=== PATIENT | male | born 1970 | race Caucasian/White ===

== ENCOUNTER 2019-10-08 17:14 | Emergency (ER) | payer BC, OTHER ==
--- OUTSIDE RECORDS SUMMARY | 2019-10-08 17:26 | XMS REPORT | Continuity of Care Document ---
:1970 External Reference #:[id number] Author Name Cassie Ramos MD Address [address] [place] [id number] Problems Active Problems Provider Date Mixed hyperlipidemia Ruchi Minor MD Onset: 06/15/2017 Mild intermittent asthma Ruchi Minor MD Onset: 07/10/2019 Impaired fasting glycaemia Ruchi Minor MD Onset: 08/01/2019 Social History Type Date Description Comments Sex Unknown ETOH Use 07/10/2019 Occasionally consumes alcohol score = 3 Tobacco Use Start: Unknown Patient has never smoked Smoking Status Reviewed: 07/10/19 Patient has never smoked Allergies, Adverse Reactions, Alerts Active Allergies Reaction Severity Comments Date Latex facial swelling 06/11/2016 Medications Active Medications SIG Qnty Indications Ordering Provider Date Proair HFA 2 puffs every 4 8.500gm J45.20 Ruchi Minor, 06/15/2017 108(90Base) hours as needed mcg/Act Aerosol Loratadine 1 by mouth every 30tabs Ruchi Minor, 06/11/2016 10mg Tablets day Medications Administered in Office Medication SIG Qnty Indications Ordering Provider Date PPD Injection Schedule, Nurses 11/23/2018 Immunizations CPT Code Status Date Vaccine Lot # [id number] Given 07/10/2019 Tdap (Adacel) Ages 7 And Above Only [id number] Given 05/17/2009 Hepatitis B Vac Adolescent 2 Dose Schedule 16369 Given 05/17/2009 Tdap (Adacel) Ages 7 And Above Only 43293 Given 04/09/2009 Hepatitis B Vac Adolescent 2 Dose Schedule 14794 Given 09/30/1981 Tetanus And Diptheria Toxoid 7 Years And Older Preserv Free 51157 Given 09/30/1981 Oral Poliovirus Immunization [id number] Refused 07/06/2018 Flu Vaccine NOS Vital Signs Date Vital Result Comment 08/22/2019 4:09pm Body Temperature 98.7 F Weight 208.00 lb Heart Rate 72 /min BP Systolic 128 mmHg BP Diastolic 70 mmHg Respiratory Rate 18 /min O2 % BldC Oximetry 98 % ra 07/10/2019 10:30am Weight 208.00 lb With work boots Heart Rate 80 /min BP Systolic 124 mmHg BP Diastolic 78 mmHg Respiratory Rate 18 /min Height 63.50 inches 5'3.50" O2 % BldC Oximetry 98 % Ra BMI (Body Mass Index) 36.3 kg/m2 Results Test Acquired Date Facility Test Result H/L Range Note Lipid Treatment 08/01/2019 [facility] Cholesterol 231 mg/dL High 50-199 1 Triglycerides 279 mg/dL High 30-200 HDL 35 mg/dL 29-71 2 Chol/ HDL Ratio 6.5 ratio 4.0-6.7 VLDL 56 mg/dL High 2-29 LDL (Calc) 140 mg/dL High 20-99 3 Alt 32 U/L 3-42 Ast 28 U/L 8-42 CBC with Auto Diff-fcmg 08/01/2019 [facility] WBC 6.8 K/uL 4.1-11.0 4 RBC 5.12 M/uL 4.60-6.10 5 Hemoglobin 16.2 gm/dL 13.5-18.0 6 Hematocrit 46.0 % 41.0-53.0 7 MCV 89.9 fL 80.0-95.0 8 MCH 31.6 pg 27.0-32.0 9 MCHC 35.1 g/dL 32.0-36.0 10 RDW 13.5 % 10.5-14.5 11 PLT Count 162 K/ul 150-400 12 MPV 9.3 FL 7.1-10.7 Neutrophil 55.4 % 35.0-75.0 13 Lymphocyte 34.3 % 16.0-52.0 14 Monocyte 7.5 % 0.0-8.0 15 Eosinophil 2.4 % 0.0-5.0 Basophil 0.4 % 0.0-4.0 Abs Neutrophils 3.8 K/uL 1.8-7.7 16 Abs Lymphocytes 2.3 K/uL 1.2-4.8 17 Abs Monocytes 0.5 K/uL 0.0-0.8 18 Abs Eosinophils 0.2 K/uL 0.0-0.5 19 Abs Basophils 0.0 K/uL 0.0-0.2 20 Laboratory test finding 08/01/2019 [facility] TSH 1.84 uIU/mL 0.35-4.94 Basic (BMP) 08/01/2019 [facility] Sodium 137 mmol/L 135-146 21 Potassium 4.1 mmol/L 3.5-5.2 Chloride# 101 mmol/L 97-110 22 Carbon Dioxide 28 mmol/L 24-34 Glucose 109 mg/dL High 70-105 BUN 10 mg/dL 6-26 Creatinine 0.9 mg/dL 0.5-1.4 Calcium 9.1 mg/dL 8.5-10.5 23 Female Egfr 78 >60 24 Male Egfr 101 >60 25 Anion Gap 8 mmol/L 5-15 26 Laboratory test finding 08/01/2019 [facility] PSA 0.530 ng/mL 0.000-4.000 27 1 soon 2 Per NCEP ATP III Guidelines: Results lower than 40 mg/dL are suggestive of increased risk for coronary artery disease. Results > or = to 60 mg/dL are considered a negative risk factor. 3 Per NCEP ATP III Guidelines: Normal Population <130 Patients with medical conditions: CHD/DM Optimal: <100 Borderline high: 130-159 High: 160-189 Very high: >189 4 Updated Reference Range 06/2019 5 Updated Reference Range 06/2019 6 Updated Reference Range 06/2019 7 Updated Reference Range 06/2019 8 Updated Reference Range 06/2019 9 Updated Reference Range 06/2019 10 Updated Reference range 06/2019 11 Updated Reference range 06/2019 12 Updated Reference Range 06/2019 13 Updated Reference Range 06/2019 14 Updated Reference Range 06/2019 15 Updated Reference Range 06/2019 16 Updated Reference Range 06/2019 17 Updated Reference Range 06/2019 18 Updated Reference Range 06/2019 19 Updated Reference Range 06/2019 20 Updated Reference Range 06/2019 21 Updated reference range on new analyzer 22 Updated reference range on new analyzer 23 Updated reference range 12-14-2018 24 Concerning GFR Guidelines for Americans: Normal function or mild renal disease, if clinically at risk: >/= 60 mL/min Moderately decreased: 30-59 Severely decreased: 15-29 Renal failure: <15 There is reduced accuracy above 60ml/min/1.73 m squared, but the numeric value may be clinically useful in the near 60 range 25 Concerning GFR Guidelines: Normal function or mild renal disease, if clinically at risk: >/= 60 mL/min Moderately decreased: 30-59 Severely decreased: 15-29 Renal failure: <15 There is reduced accuracy above 60ml/min/1.73 m squared, but the numeric value may be clinically useful in the near 60 range Glomerular Filtration Rate (GFR) is estimated based on the CKD-EPI equation, which assumes a steady state for creatinine as recommended by the National Kidney Disease Education Program in conjunction with the National Institutes of Health and the National Kidney Foundation. Clinical conditions in which it may be necessary to measure GFR by using clearance methods include extremes of age and body size, severe malnutrition or obesity, diseases of skeletal muscle, paraplegia or quadriplegia, vegetarian diet, rapidly changing kidney function, and calculation of the dose of potentially toxic drugs that are excreted by the kidneys. 26 Updated Reference Range 27 Beginning 10/11/06 PSA values assayed at [facility] laboratories uses chemiluminescence methodology manufactured by [employer] for use on the DXI analyzer. Values obtained with different assay methods or kits can not be used interchangeably. Serum PSA measurement is not an absolute test for malignancy. The PSA value should be used in conjunction with information available from clinical evaluation and other diagnostic procedures. Procedures Description No Information Available Medical Devices Description No Information Available Encounters Type Date Location Provider Dx Diagnosis Office Visit 07/10/2019 [facility] Ruchi Minor MD Z00.00 Encntr for general 10:30a adult medical exam w/o abnormal findings E66.9 Obesity, unspecified E78.2 Mixed hyperlipidemia Z12.11 Encounter for screening for malignant neoplasm of colon J45.20 Mild intermittent asthma, uncomplicated Z12.5 Encounter for screening for malignant neoplasm of prostate Z13.31 Encounter for screening for depression Z13.89 Encounter for screening for other disorder Z23 Encounter for immunization Z68.36 Body mass index (BMI) 36.0-36.9, adult Assessments Date Code Description Provider 08/22/2019 L82.1 Other seborrheic keratosis Cassie Ramos MD 08/01/2019 E78.2 Mixed hyperlipidemia Ruchi Minor MD 08/01/2019 E78.2 Mixed hyperlipidemia Schedule, Laboratory 08/01/2019 Z12.5 Encounter for screening for malignant neoplasm Ruchi Minor MD of prostate 08/01/2019 Z12.5 Encounter for screening for malignant neoplasm Schedule, Laboratory of prostate 08/01/2019 E78.2 Mixed hyperlipidemia [facility] 08/01/2019 Z12.5 Encounter for screening for malignant neoplasm [facility] of prostate 07/10/2019 Z00.00 Encounter for general adult medical Ruchi Minor MD examination without abnormal findings 07/10/2019 E66.9 Obesity, unspecified Ruchi Minor MD 07/10/2019 E78.2 Mixed hyperlipidemia Ruchi Minor MD 07/10/2019 Z12.11 Encounter for screening for malignant neoplasm Ruchi Minor MD of colon 07/10/2019 J45.20 Mild intermittent asthma, uncomplicated Ruchi Minor MD 07/10/2019 Z12.5 Encounter for screening for malignant neoplasm Ruchi Minor MD of prostate 07/10/2019 Z13.31 Encounter for screening for depression Ruchi Minor MD 07/10/2019 Z13.89 Encounter for screening for other disorder Ruchi Minor MD 07/10/2019 Z23 Encounter for immunization Ruchi Minor MD 07/10/2019 Z68.36 Body mass index (BMI) 36.0-36.9, adult Ruchi Minor MD Plan of Treatment Future Appointment(s):07/15/2020 10:30 am - Ruchi Minor MD at [facility]08/22/2019 - Cassie Ramos MDL82.1 Other seborrheic keratosisComments:seborrheic keratosis. Explained likely inherited type skin lesion, benign, grows slowly over time and likely to develop more. If grows rapidly or significant pigment change, could be something else, ie skin cancer, and should let me know. Pt should continue self monitoring of skin lesions and advise me of any changing lesions of concern. ok to use topical hydrocortisone for itching If not controlling the itch then may seek care for shave biopsyFollow up:follow up as scheduled Functional Status Functional Condition Comment Date Status Negative for GLASSES Inactive Mental Status Description No Information Available Referrals Refer to Reason for Referral Status Appt Date Deb Boyer screening colonoscopy earlier in day is better Scheduled after 07/29/[address] TO REVIEW IN ORDER TO GET AN AP[place]EDUL[place] [place] [place] [address] [phone]
[2019-10-08 17:58] VITALS: BP 145/66
--- NOTE | 2019-10-08 18:21 | UC ---
Laceration HPI - HPI Summary HPI Summary: Cut right thumb over IP joint with metal can lid. Steri strips applied. - History Of Current Complaint Chief Complaint: UCLaceration Stated Complaint: RIGHT THUMB LACERATION Time Seen by Provider: 10/08/19 18:03 Hx Obtained From: Patient Laceration Location: Finger - right thumb Mechanism Of Injury: Sharp Trauma Onset/Duration: Sudden Onset, Lasting Hours - 1 Severity: Mild Pain Intensity: 0 Aggravating Factors: Nothing Hands: 1 - 0.9cm laceration with steri strips in place. - Allergies/Home Medications Allergies/Adverse Reactions: Allergies Allergy/AdvReac Type Severity Reaction Status Date / Time latex Allergy Severe facial, Verified 10/08/19 17:58 lips swelling Home Medications: Home Medications Albuterol HFA INHALER* [Ventolin HFA Inhaler*] 2 puff INH Q4H PRN 10/08/19 [ History Confirmed 10/08/19] LoraTADine TAB(NF) [Claritin 10 MG TAB(NF)] 10 mg PO DAILY 10/08/19 [History Confirmed 10/08/19] Montelukast Sodium TAB* [Singulair 10 MG TAB*] 10 mg PO BEDTIME #30 tab [Rx] PMH/Surg Hx/FS Hx/Imm Hx Respiratory History: Asthma - Surgical History Surgical History: None - Family History Known Family History: Positive: Hypertension, Diabetes Family History: no father history of cardio vascular disease , clotting or bleeding disorder - Social History Occupation: Employed Full-time Lives: With Family Alcohol Use: Occasionally Substance Use Type: None Smoking Status (MU): Never Smoked Tobacco - Immunization History Most Recent Tetanus Shot: 06/2019 Review of Systems All Other Systems Reviewed And Are Negative: Yes Skin: Positive: Other - laceration ENT: Positive: Nasal Discharge Respiratory: Positive: Cough - "winter cough" Physical Exam Triage Information Reviewed: Yes Appearance: Well-Appearing, No Pain Distress, Well-Nourished Vital Signs: Initial Vital Signs Temp 98 F 10/08/19 17:55 Pulse 90 10/08/19 17:55 Resp 16 10/08/19 17:55 BP 145/66 10/08/19 17:55 Pulse Ox 99 10/08/19 17:55 Vital Signs Reviewed: Yes Eyes: Positive: Conjunctiva Clear Neck exam: Normal Respiratory: Positive: Lungs clear Cardiovascular Exam: Normal Musculoskeletal Exam: Normal Neurological Exam: Normal Psychological Exam: Normal Skin: Positive: Other - laceration Laceration Repair - Laceration Repair 1 Description: Linear : No Repair Necessary - wound well approximated with steri strips in place. Laceration Size After Repair: Length (cm) - 0.9cm Laceration Course/Dx - Differential Dx - Laceration/Wound Differental Diagnoses: Avulsion, Dehiscence, Laceration - Diagnosis Provider Diagnosis: Laceration of right thumb without complication, Allergic rhinitis Discharge ED - Sign-Out/Discharge Documenting (check all that apply): Patient Departure All imaging exams completed and their final reports reviewed: No Studies - Discharge Plan Condition: Stable Disposition: HOME Prescriptions: Montelukast Sodium TAB* [Singulair 10 MG TAB*] 10 mg PO BEDTIME #30 tab Patient Education Materials: Laceration Without Closure (ED), Allergic Rhinitis (ED) Referrals: Ruchi Minor MD [Primary Care Provider] - Additional Instructions: NEILMED SINUS RINSE: CHECK OUT AT [facility] Saline nasal wash helps with mucous, allergies and congestion. It can be used up to twice a day or only as needed. Use lukewarm tap water. It does not have to be sterilized or distilled water. Tilt your head straight down into the sink. Do 1/3 on each side and snort out of both nostrils. Repeat the process with 1/6 of the bottle on each side with snorting in between to finish the solution in the bottle - Billing Disposition and Condition Condition: STABLE Disposition: Home
== END 2019-10-08 18:28 | disposition home or self-care (01) ==
LOC: UCCORT 17:14
DX: S61.011A Laceration without foreign body of right thumb without damage to nail, initial encounter (principal); J45.909 Unspecified asthma, uncomplicated; X58.XXXA Exposure to other specified factors, initial encounter; Y92.9 Unspecified place or not applicable; Z91.040 Latex allergy status; Z79.899 Other long term (current) drug therapy
CPT/HCPCS: 99202; G0463